=== PATIENT | male | born 1985 | race Caucasian/White ===

== ENCOUNTER 2017-09-10 14:43 | Emergency (ER) | payer SELFPAY ==
[2017-09-10] MEDS ORDERED: ALBUTEROL SULFATE 0.083% NEB 2.5 MG/3 ML AMPUL NEB ONE (16:47)
--- NOTE | 2017-09-10 16:48 | ER Document Report ---
HPI - HPI Patient complains to provider of: cough, rhinnorhea Pain Level: 5 Context: Patient is a 32-year-old male presents emergency department complaining of 3-4 days of runny nose and cough. Patient states that he is a smoker but denies any history of asthma, COPD. He denies any fevers, chills, difficulty swallowing, difficulty breathing. He does admit to intermittent sore throat. Denies any chest pain, nausea, vomiting, abdominal pain. States he has had multiple sick contacts at work. - CONSTITUTIONAL Constitutional: REPORTS: Chills - EENT EENT: REPORTS: Sore Throat - NEURO Neurology: REPORTS: Headache - RESPIRATORY Respiratory: REPORTS: Coughing Past Medical History - Social History Smoking Status: Current Every Day Smoker Chew tobacco use (# tins/day): No Frequency of alcohol use: Occasional Drug Abuse: None Family History: Reviewed & Not Pertinent Patient has suicidal ideation: No Patient has homicidal ideation: No Renal/ Medical History: Denies: Hx Peritoneal Dialysis - Immunizations Hx Diphtheria, Pertussis, Tetanus Vaccination: Yes Vertical Provider Document - CONSTITUTIONAL Agree With Documented VS: Yes Notes: PHYSICAL EXAM GENERAL: Alert, interacts well. HEENT: NCAT, pale conjunctiva, extraocular movements intact, pupils PERRL. external ear normal, no evidence of external auditory canal tenderness, blood/ drainage, cerumen impaction, TM intact without evidence of effusion, bulging, injection, MMM, Uvula midline. Airway patent. No evidence of tonsillar enlargement, peritonsillar abscess, retropharyngeal abscess. NECK: Full range of motion. Supple. Trachea midline. LUNGS: Diminished air movement bilaterally, no wheezes, rales, or rhonchi. No respiratory distress. HEART: Regular rate and rhythm. No murmurs, gallops, or rubs. NEUROLOGICAL: Alert and oriented x4. Normal speech. PSYCH: Normal affect, normal mood. SKIN: Warm, dry, normal turgor. No rashes or lesions noted. - INFECTION CONTROL TRAVEL OUTSIDE OF THE [place] IN LAST 30 DAYS: No - RESPIRATORY O2 Sat by Pulse Oximetry: 98 Course - Re-evaluation Re-evalutation: 09/10/17 17:40 Patient is a 32-year-old male is hemodynamically stable, no acute distress afebrile. Rapid strep is negative. Patient clinically feels much better after nebulizer treatment. Otherwise low clinical suspicion for pneumonia given no fever, tachycardia, cough has been nonproductive. Discussed with patient indications to return to the emergency department otherwise can utilize cough medicine [id number] and albuterol inhaler that he will be discharged home with. Patient agrees with plan and is stable for discharge home - Vital Signs Vital signs: Temp Pulse Resp BP Pulse Ox 98.7 F 56 L 18 116/78 98 09/10/17 15:17 09/10/17 15:17 09/10/17 15:17 09/10/17 15:17 09/10/17 15:17 Discharge - Discharge Clinical Impression: URI (upper respiratory infection) Qualifiers: URI type: unspecified viral URI Qualified Code(s): J06.9 - Acute upper respiratory infection, unspecified Condition: Good Disposition: HOME, SELF-CARE Additional Instructions: BRONCHIOLITIS: Your child has bronchiolitis. This is usually a viral infection of the smaller airways within the chest. Typical symptoms are fever, cough, and wheezing. The wheezing is due to swelling in the airways, although sometimes airway spasm (asthma) is also present. The infection will persist for 10 to 14 days, although typically the child wheezes only one or two days. There is no cure for bronchiolitis. If airway spasm seems to be present, the doctor may try an asthma medication. Decongestants and antihistamines are usually not helpful. The usual treatment is a cool mist humidifier at home, with extra liquids given by mouth. Acetaminophen may be given for fever. Hospitalization may be needed for very ill children who do not respond to usual treatments. If the child seems to be having increased difficulty breathing, has poor color, develops higher fever, or appears more ill, call the doctor or return at once. INHALED BRONCHODILATORS: You have received a treatment of and/or prescription for an inhaled bronchodilator -- a medication which stimulates the airways in the lung to dilate. This improves the flow of air in asthma, bronchitis, and emphysema. These medicines have some similarity to adrenaline, and can cause similar side effects: shakiness, racing heart, and a sense of nervousness. These side effects decrease with time. Contact your doctor if these side effects are severe. Do not over-use the medicine. Too-frequent use of the inhaler may make it ineffective. Call your doctor if the inhaler is not controlling your symptoms at the prescribed doses. USE OF ACETAMINOPHEN (Tylenol): Acetaminophen may be taken for pain relief or fever control. It's much safer than aspirin, offering a wider range of "safe" dosages. It is safe during . Some brand names are Tylenol, Panadol, Datril, Anacin 3, Tempra, and Liquiprin. Acetaminophen can be repeated every four hours. The following are maximum recommended dosages: WEIGHT Dose Drops Elixir Chewable( 80mg) (LBS.) drprs=droppers tsp=teaspoon 6 40 mg 0.4 ml (1/2) 6-11 80 mg 0.8 ml (full) tsp 1 tab 12-16 120 mg 1 1/2 drprs 3/4 tsp 1 1/2 tabs 17-23 160 mg 2 drprs 1 tsp 2 tabs 24-30 240 mg 3 drprs 1 1/2 tsp 3 tabs 30-35 320 mg 2 tsp 4 tabs 36-41 360 mg 2 1/4 tsp 4 1/2 tabs 42-47 400 mg 2 1/2 tsp 5 tabs 48-53 480 mg 3 tsp 6 tabs 54-59 520 mg 3 1/4 tsp 6 1/2 tabs 60-64 560 mg 3 1/2 tsp 7 tabs 65-70 600 mg 3 3/4 tsp 7 1/2 tabs 71-76 640 mg 4 tsp 8 tabs 77-82 720 mg 4 1/2 tsp 9 tabs 83-88 800 mg 5 tsp 10 tabs >89 pounds or adults 650 mg to 900 mg Acetaminophen can be repeated every four hours. Maximum dose not to exceed 4000 mg a day. These maximum recommended dosages are slightly higher than the dosages written on the product container, but these dosages are very safe and below the toxic dosage for acetaminophen. FOLLOW-UP CARE: If you have been referred to a physician for follow-up care, call the physician s office for an appointment as you were instructed or within the next two days. If you experience worsening or a significant change in your symptoms, notify the physician immediately or return to the Emergency Department at any time for re-evaluation. Prescriptions: Albuterol Sulfate [Proair HFA Inhalation Aerosol 8.5 gm MDI] 2 puff IH Q4H PRN # 1 mdi PRN Reason: Forms: Return to Work
[2017-09-10 17:53] VITALS: BP 135/78
== END 2017-09-10 18:01 | disposition home or self-care (01) ==
LOC: ER 14:43
DX: J02.8 Acute pharyngitis due to other specified organisms (principal); B97.89 Other viral agents as the cause of diseases classified elsewhere; R05 Cough; J34.89 Other specified disorders of nose and nasal sinuses; R51 Headache; R68.83 Chills (without fever); F17.200 Nicotine dependence, unspecified, uncomplicated
CPT/HCPCS: 87070; 87880; 94640; 99283

== ENCOUNTER 2019-06-06 18:36 | Emergency (ER) | payer OTHER ==
[2019-06-06] MEDS ORDERED: OXYCODONE-ACETAMINOPHEN 5-325 MG TABLET PO ONE (18:54)
--- NOTE | 2019-06-06 18:57 | ER Document Report ---
ED Medical Screen (RME) - General Chief Complaint: Burn Stated Complaint: FINGER PAIN Time Seen by Provider: 06/06/19 18:50 Mode of Arrival: Ambulatory Information source: Patient Notes: 34-year-old male presents to ED for urrutia to the fourth and fifth finger on the right hand with large blisters to the dorsal side of the hand. 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 He states he has a 5 out of 5 pain. He states he went to urgent care they put some cream on his hand and told him to use [id number] medications. He states his pain is too bad for just [id number] medications. He is alert oriented respirations regular and unlabored speaking in full sentences. He states he got dropped off by his father. He states he smokes 6 cigarettes a day but does not drink or use any kind of drugs. I have greeted and performed a rapid initial assessment of this patient. A comprehensive ED assessment and evaluation of the patient, analysis of test results and completion of medical decision making process will be conducted by an additional ED providers. TRAVEL OUTSIDE OF THE [place] IN LAST 30 DAYS: No - Related Data Allergies/Adverse Reactions: No Known Allergies Allergy (Unverified 09/10/17 15:14) Past Medical History Renal/ Medical History: Denies: Hx Peritoneal Dialysis - Immunizations Hx Diphtheria, Pertussis, Tetanus Vaccination: Yes Physical Exam - Vital signs Vitals: Temp Pulse Resp BP Pulse Ox 98.0 F 71 20 134/84 H 98 06/06/19 18:42 06/06/19 18:42 06/06/19 18:42 06/06/19 18:42 06/06/19 18:42 Course - Vital Signs Vital signs: Temp Pulse Resp BP Pulse Ox 98.0 F 71 20 134/84 H 98 06/06/19 18:42 06/06/19 18:42 06/06/19 18:42 06/06/19 18:42 06/06/19 18:42
[2019-06-06] MEDS ORDERED: MORPHINE SULFATE 10 MG/ML INJ IM ONE (20:14)
[2019-06-06] MEDS ORDERED: IBUPROFEN 800 MG TABLET PO ONE (20:15)
[2019-06-06] MEDS ORDERED: HYDROCODONE/ACETAMINOPHEN 5-325 MG (6 TAB/ER DISP) PO PRN (20:46)
--- NOTE | 2019-06-06 20:47 | ER Document Report ---
HPI - HPI Time Seen by Provider: 06/06/19 18:50 Pain Level: 5 Context: Patient is a 34-year-old male presents to the emergency department with a chief complaint of burn. Patient states around 1 PM at this afternoon he was cooking at his job when hot grease came in contact with his fourth and fifth digits on the right hand. Patient reports immediately developing blisters. Patient reports he was seen at the urgent care where they applied Silvadene and was told to come to the emergency department. Patient states his base complaint is pain. Patient reports his tetanus shot is up-to-date. Patient states none of the blisters are leaking or oozing. Past Medical History - General Information source: Patient - Social History Smoking Status: Current Some Day Smoker Chew tobacco use (# tins/day): No Frequency of alcohol use: Rare Drug Abuse: None Lives with: Spouse/Significant other Family History: Reviewed & Not Pertinent Patient has suicidal ideation: No Patient has homicidal ideation: No - Past Medical History Cardiac Medical History: Reports: None Pulmonary Medical History: Reports: None EENT Medical History: Reports: None Neurological Medical History: Reports: None Endocrine Medical History: Reports: None Renal/ Medical History: Reports: None. Denies: Hx Peritoneal Dialysis Malignancy Medical History: Reports None GI Medical History: Reports: None Musculoskeletal Medical History: Reports None Skin Medical History: Reports None Psychiatric Medical History: Reports: None Traumatic Medical History: Reports: None Infectious Medical History: Reports: None Surgical Hx: Negative - Immunizations Hx Diphtheria, Pertussis, Tetanus Vaccination: Yes Vertical Provider Document - CONSTITUTIONAL Agree With Documented VS: Yes Exam Limitations: No Limitations General Appearance: No Apparent Distress - INFECTION CONTROL TRAVEL OUTSIDE OF THE [place] IN LAST 30 DAYS: No - HEENT HEENT: Atraumatic, Normal ENT Exam, Normocephalic, PERRLA - NECK Neck: Normal Inspection - RESPIRATORY Respiratory: Breath Sounds Normal, No Respiratory Distress - CARDIOVASCULAR Cardiovascular: Regular Rate, Regular Rhythm - GI/ABDOMEN Gastrointestinal: Abdomen Soft, Abdomen Non-Tender, No Organomegaly, Normal Bowel Sounds - NEURO Level of Consciousness: Awake, Alert, Appropriate - DERM Integumentary: Warm, Dry Notes: Patient does have blistering noted to the distal aspect of the right fourth and fifth finger. The blisters do cross the joint line at the DIP. There is no active bleeding or drainage. Patient does have a less than 2 second cap refill, + sensation distal to injury. The burn is not circumferential. There is no other gallardo noted to the hand. Course - Re-evaluation Re-evalutation: 06/06/19 21:00 Patient's tetanus shot is up-to-date. I did consult with my attending physician Dr. Guicho Richmond who recommends strict follow-up with wound care and to place patient in 2 finger splints as the blisters to cross the joint. I did give the patient strict return precautions. Patient was giving a dose of morphine while in the emergency department for severe pain. Patient reports he is not driving. Will give patient 6 [place] tablets to go. Patient aware he is not to operate heavy machinery or drive while on these medications. Patient to also use 800 mg ibuprofen. I did give patient information for the wound care clinic. Patient denies questions at this time. Patient aware to keep the areas clean and dry and do not pop the blisters. - Vital Signs Vital signs: Temp Pulse Resp BP Pulse Ox 98.0 F 71 20 134/84 H 98 06/06/19 18:42 06/06/19 18:42 06/06/19 18:42 06/06/19 18:42 06/06/19 18:42 Discharge - Discharge Clinical Impression: Burn Condition: Stable Disposition: HOME, SELF-CARE Instructions: Oral Narcotic Medication ([facility]), Pain Medication Injection ([facility]) Additional Instructions: Today you are seen in the emergency department for gallardo to the fourth and fifth digits of the hand. There is notable blisters. Do not pop these blisters. You have been placed in 2 finger splints as the burn does go over the joint. It is imperative that you follow-up with wound care. I would call them tomorrow to make a follow-up appointment. Please keep your fingers in the splints. Monitor for signs and symptoms of infection to include swelling, redness, increased tenderness, fever or any other concerning signs or symptoms. If your fingers to become discolored such as navarro, blue, you have new and significant numbness and tingling please return to the emergency department immediately. Gallardo The seriousness of a burn is not always obvious at first. Delayed tissue damage and secondary infection may occur despite proper treatment. Proper care is very important. A burn that is third-degree may need skin grafting. Most gallardo, however, are simply protected with dressings until healed. Keep the burn clean. If the dressing gets wet, remove it and blot the wound dry, then apply a fresh dressing. Dressings should be changed at least once daily. Soaks to remove crusting are usually started in about two days. Gallardo in certain areas require stretching to prevent disabling tightness. Your doctor will advise you about this. For pain control, you may frequently apply a hand towel that has been dipped in water with ice cubes. Do not apply ice directly to the burned areas. If any signs of infection occur (swelling, redness, increasing tenderness, red streaks, tender lumps in the armpit or groin above the burn, or fever), contact the doctor immediately. Prescriptions: Ibuprofen [Motrin 800 mg Tablet] 800 mg PO TID #30 tab Silver Sulfadiazine [Silvadene 1% Cream 50 gm Tube] 1 applic TP BID #50 grams Forms: Return to Work Referrals: Wound Care [Provider Group] - Follow up as needed
[2019-06-06 21:07] VITALS: BP 120/70
== END 2019-06-06 21:09 | disposition home or self-care (01) ==
LOC: ER 18:36
DX: T23.231A Burn of second degree of multiple right fingers (nail), not including thumb, initial encounter (principal); X10.2XXA Contact with fats and cooking oils, initial encounter; Y99.0 Civilian activity done for income or pay; F17.200 Nicotine dependence, unspecified, uncomplicated
CPT/HCPCS: 99283; 96372; J2270

== ENCOUNTER 2020-04-13 19:11 | Emergency (ER) | payer SELFPAY ==
[2020-04-13] MEDS ORDERED: ONDANSETRON HCL INJ/PF 4 MG/2 ML SDV IV ONE (20:52)
[2020-04-13] MEDS ORDERED: RINGERS SOLUTION,LACTATED 1,000 ML IV ONE (20:52)
--- NOTE | 2020-04-13 20:56 | ER Document Report ---
ED Medical Screen (RME) - General Chief Complaint: Drug Abuse Stated Complaint: DRUG WITHDRAWEL Time Seen by Provider: 04/13/20 20:45 Notes: HPI; 35-year-old male presents to the emergency room complaining of worsening vomiting that started today. Has a history of heroin use. Patient states he has been on Buprenorphiine for several years and has been trying to withdrawal off it for the past week. States he is now on day 7. States the vomiting has gotten worse today. Also states he fell 2 or 3 days ago woke up on the floor with a laceration to his right earlobe. PE: Alert and oriented x3. Lungs: Clear to auscultation without rales, rhonchi, wheezes. Heart: Regular rate rhythm without murmurs, rubs, gallops. Patient with a laceration that is noted to his right earlobe actively bleeding. Tetanus up-to-date. I have greeted and performed a rapid initial assessment of this patient. A comprehensive ED assessment and evaluation of the patient, analysis of test results and completion of the medical decision making process will be conducted by additional ED providers. I have specifically instructed the patient or family members with the patient to immediately return to any nursing staff should anything change in the patient's condition or with their chief complaint. TRAVEL OUTSIDE OF THE [place] IN LAST 30 DAYS: No - Related Data Allergies/Adverse Reactions: No Known Allergies Allergy (Unverified 09/10/17 15:14) Home Medications: adderall Past Medical History Renal/ Medical History: Denies: Hx Peritoneal Dialysis - Immunizations Hx Diphtheria, Pertussis, Tetanus Vaccination: Yes Physical Exam - Vital signs Vitals: Temp Pulse Resp BP Pulse Ox 98.8 F 77 18 132/82 H 96 04/13/20 19:36 04/13/20 19:36 04/13/20 19:36 04/13/20 19:36 04/13/20 19:36 Course - Vital Signs Vital signs: Temp Pulse Resp BP Pulse Ox 98.8 F 77 18 132/82 H 96 04/13/20 19:36 04/13/20 19:36 04/13/20 19:36 04/13/20 19:36 04/13/20 19:36
--- NOTE | 2020-04-14 00:27 | ER Document Report ---
ED Substance Abuse / Acc. OD - General Chief Complaint: Drug Abuse Stated Complaint: DRUG WITHDRAWEL Time Seen by Provider: 04/13/20 20:45 Notes: Patient is a 35-year-old male who presents to the emergency department with a chief complaint of vomiting that started earlier today. Patient states that he has been on Buprenorphine and has a history of heroin use. Patient states that he has been on Buprenorphine for years. His last dose was a week ago and he states that he has had withdrawal symptoms. Patient admits to taking some [place] from his family member because he was in pain. He thought he was going to have ibuprofen, but that is what they gave him. Patient states about 3 to 4 days ago he ended up falling and sustained a laceration to his right earlobe. Patient denies any other medical history. Patient states that he would like to try to get into [facility]. TRAVEL OUTSIDE OF THE [place] IN LAST 30 DAYS: No - Related Data Allergies/Adverse Reactions: No Known Allergies Allergy (Unverified 09/10/17 15:14) Home Medications: adderall Past Medical History - Social History Smoking Status: Current Every Day Smoker Family History: Reviewed & Not Pertinent Patient has homicidal ideation: No Renal/ Medical History: Denies: Hx Peritoneal Dialysis - Immunizations Hx Diphtheria, Pertussis, Tetanus Vaccination: Yes Review of Systems - Review of Systems Notes: REVIEW OF SYSTEMS: CONSTITUTIONAL : Denies recent illness. Denies recent unintentional weight loss. Denies fever, chills, or sweats. EENT: See HPI. CARDIOVASCULAR: Denies chest pain. RESPIRATORY: Denies shortness of breath, cough, congestion, difficulty breathing, or wheezing. GASTROINTESTINAL: Denies nausea, vomiting, and diarrhea. Denies abdominal pain. Denies constipation. GENITOURINARY: Denies difficulty urinating, burning, blood in urine, urgency or frequency. MUSCULOSKELETAL: Denies neck and back pain. Denies joint pain or swelling. SKIN: Denies rash, itchiness, or lesions HEMATOLOGIC : Denies easy bruising or bleeding. LYMPHATIC: Denies swollen, painful, enlarged glands. NEUROLOGICAL: Denies no numbness or tingling denies weakness. Denies headache. Denies altered mental status. Denies alteration in speech. PSYCHIATRIC: See HPI. All other systems reviewed and negative. Physical Exam - Vital signs Vitals: Temp Pulse Resp BP Pulse Ox 98.8 F 77 18 132/82 H 96 04/13/20 19:36 04/13/20 19:36 04/13/20 19:36 04/13/20 19:36 04/13/20 19:36 - Notes Notes: PHYSICAL EXAMINATION: GENERAL: Appears well, healthy, well-nourished, no acute distress. HEAD: Normocephalic, atraumatic. EYES: PERRL, conjunctiva normal, all extraocular movements intact, sclera nonicteric ENT: Moist mucous membranes. Laceration noted to right earlobe. Healing appropriately, but split in the middle. Bleeding well controlled. NECK: Supple, no noticeable swelling, redness, rash. Normal range of motion. LUNGS: Equal breath sounds bilaterally and clear to auscultation. No wheezes rales or rhonchi. CARDIOVASCULAR: S1-S2, regular rate, regular rhythm. Radial pulses 2+, normal. ABDOMEN: Normoactive bowel sounds. Soft, nontender, no guarding, no rebound tenderness, and no masses palpated. EXTREMITIES: Normal strength and range of motion, no pitting or edema. No cyanosis. NEUROLOGICAL: Moves all extremities upon command. Strength 5/5 in all extremities. PSYCH: Normal mood, normal affect. SKIN: Warm, dry. No rash, lesions, ulcerations noted. Normal skin turgor. Course - Re-evaluation Re-evalutation: 04/14/20 01:22 Hematology is unremarkable. Chemistries are also unremarkable. Toxicology shows negative salicylates, acetaminophen, and alcohol. Awaiting urinalysis and urine drug screen. 04/14/20 03:40 I was informed by the primary nurse that [facility] has a bed available. Patient is stable for discharge to [facility]. Urine toxicology is positive for opiates, consistent with history. Amphetamines were positive, as he is currently on Dextroamphetamine. Unremarkable. Patient will go to [facility], as they have a bed for him. States he feels better after receiving Vistaril. He is in agreement with this plan. Follow-up precautions were given. Verbal discharge instructions were given to the patient. They verbalized understanding. They are stable for discharge. - Vital Signs Vital signs: Temp Pulse Resp BP Pulse Ox 98.8 F 77 17 114/69 100 04/13/20 19:36 04/13/20 19:36 04/14/20 03:44 04/14/20 03:44 04/14/20 03:44 - Laboratory Result Diagrams: 04/14/20 00:34 04/14/20 00:34 Laboratory results interpreted by me: 04/14/20 04/14/20 00:34 00:34 Seg Neutrophils % 78.9 H Sodium 136.8 L Glucose 142 H Salicylates < 1.0 L Acetaminophen < 10 L Discharge - Discharge Clinical Impression: Drug withdrawal Qualifiers: Substance type: other psychostimulant Qualified Code(s): F15.93 - Other stimulant use, unspecified with withdrawal Condition: Stable Disposition: OTHER Additional Instructions: You were in the emergency department to be evaluated for drug withdrawal. Please follow-up with [facility].
[2020-04-14 00:45] LABS: ABSOLUTE LYMPHOCYTES (AUTO) 1.5 10^3/uL (0.5-4.7); ABSOLUTE MONOCYTES (AUTO) 0.6 10^3/uL (0.1-1.4); ABSOLUTE NEUT (AUTO) 8.2 10^3/uL (1.7-8.2); BASOPHILS % (AUTO) 0.3 % (0-2); EOSINOPHILS % (AUTO) 0.2 % (0-6); HEMATOCRIT 40.1 % (37.9-51.0); HEMOGLOBIN 13.8 g/dL (13.5-17.0); LYMPHOCYTES % (AUTO) 14.7 % (13-45); MEAN CORPUSCULAR HEMOGLOBIN 28.8 pg (27.0-33.4); MEAN CORPUSCULAR HGB CONC 34.3 g/dL (32.0-36.0); MEAN CORPUSCULAR VOLUME 84 fl (80-97); MONOCYTES % (AUTO) 5.9 % (3-13); PLATELET COUNT 247 10^3/uL (150-450); RED BLOOD COUNT 4.78 10^6/uL (4.35-5.55); RED CELL DISTRIBUTION WIDTH 13.9 % (11.5-14.0); SEGMENTED NEUTROPHILS % (AUTO) 78.9 % (42-78); TOTAL CELLS COUNTED % (AUTO) 100 %; WHITE BLOOD COUNT 10.5 10^3/uL (4.0-10.5)
[2020-04-14 00:58] LABS: ALBUMIN 4.4 g/dL (3.5-5.0); ALKALINE PHOSPHATASE 97 U/L (38-126); ANION GAP 10 (5-19); ASPARTATE AMINO TRANSFERASE 37 U/L (17-59); BILIRUBIN,TOTAL 0.4 mg/dL (0.2-1.3); BLOOD UREA NITROGEN 12 mg/dL (7-20); CALCIUM 9.5 mg/dL (8.4-10.2); CARBON DIOXIDE 27 mmol/L (22-30); CHLORIDE 100 mmol/L (98-107); GLUCOSE 142 mg/dL (75-110); POTASSIUM 4.3 mmol/L (3.6-5.0); TOTAL PROTEIN 7.4 g/dL (6.3-8.2)
[2020-04-14 00:59] LABS: ACETAMINOPHEN < 10 ug/mL (10-30); ALCOHOL < 10 mg/dL (NONE DETECTED); SALICYLATE < 1.0 mg/dL (2.0-20.0)
[2020-04-14] MEDS ORDERED: HYDROXYZINE PAMOATE 50 MG CAPSULE PO ONE (01:22)
[2020-04-14 02:02] LABS: APPEARANCE,URINE CLEAR; BILIRUBIN,URINE NEGATIVE (NEGATIVE); COLOR,URINE YELLOW; GLUCOSE, URINE NEGATIVE (NEGATIVE); KETONES,URINE NEGATIVE (NEGATIVE); LEUKOCYTE ESTERASE,URINE NEGATIVE (NEGATIVE); NITRITE,URINE NEGATIVE (NEGATIVE); PROTEIN,URINE NEGATIVE (NEGATIVE); URINE SPECIFIC GRAVITY 1.017; UROBILINOGEN,URINE NEGATIVE mg/dL (<2.0)
[2020-04-14 03:10] LABS: URINE BARBITURATES SCREEN NEGATIVE; URINE BENZODIAZEPINES SCREEN NEGATIVE; URINE COCAINE SCREEN NEGATIVE; URINE MARIJUANA (THC) SCREEN NEGATIVE; URINE METHADONE SCREEN NEGATIVE; URINE PHENCYCLIDINE SCREEN NEGATIVE
[2020-04-14 03:51] VITALS: BP 114/69
--- NOTE | 2020-04-14 22:14 | EKG REPORT ---
SEVERITY:- NORMAL ECG - SINUS RHYTHM : Confirmed by: Nina Devine MD 14-Apr-2020 22:13:20
== END 2020-04-14 03:52 | disposition other institution (70) ==
LOC: ER 19:11
DX: F15.93 Other stimulant use, unspecified with withdrawal (principal); R11.10 Vomiting, unspecified; F19.10 Other psychoactive substance abuse, uncomplicated; F17.200 Nicotine dependence, unspecified, uncomplicated
CPT/HCPCS: 93005; 99285; 96360; 36415; 80307 ×4; 85025; 80053; 81001; 93010; J7120